=== PATIENT | male | born 1950 | race Caucasian/White ===

== ENCOUNTER 2018-11-21 16:12 | Inpatient (IN) | payer MEDICARE, OTHER ==
[~2018-11-21] VITALS: Ht 185.4 cm; Wt 134.7 kg
[~2018-11-21 16:12] MED LIST: HYDROCODONE-AP1 EAC6 PO; IBUPROFEN 800800 M1 PO; NORTRIPTYLINE H50 M3 PO; PERCOCET PO; ZOFRAN4 MG PO
[2018-11-21 16:20] VITALS: BP 124/96
[2018-11-21] MEDS ORDERED: FLOMAX0.4 MG PO (16:33)
[2018-11-21] MEDS ORDERED: FUROSEMIDE 40 M40 MG PO (16:33)
[2018-11-21] MEDS ORDERED: KLOR-CON M2020 MEQ PO (16:33)
[2018-11-21 17:00] LABS: ABSOLUTE BASOPHILS 0.1 thou/uL (0.0-0.2); ABSOLUTE EOSINOPHILS 0.1 thou/uL (0.0-0.7); ABSOLUTE MONOCYTES 0.6 thou/uL (0.0-1.2); ABSOLUTE NEUTROPHILS 8.3 thou/uL (1.6-8.1); BASOPHILS 0.9 %; EOSINOPHILS 0.9 %; HEMATOCRIT 47.8 % (42.0-52.0); HEMOGLOBIN 15.8 gm/dL (14.0-18.0); LYMPHOCYTES 18.1 %; MCH 29.8 pg (26.0-34.0); MCV 90.2 fL (80.0-100.0); MONOCYTES 5.1 %; MPV 10.3 fl. (7.2-11.1); NUCLEATED RBCS 0 /100WBC; PLATELET COUNT* 229 thou/uL (150-400); WBC 11.1 thou/uL (4.0-11.0)
[2018-11-21 17:05] LABS: APTT 26.7 Seconds (25.0-31.3); INR 1.2
[2018-11-21 17:09] LABS: CALCIUM 9.2 mg/dL (8.5-10.1); CREATININE 1.6 mg/dL (0.6-1.3); POTASSIUM 4.2 mmol/L (3.5-5.1)
[2018-11-21 17:16] LABS: ALBUMIN 3.5 g/dL (3.4-5.0); TOTAL BILIRUBIN 1.4 mg/dL (<0.1-1.0); TOTAL PROTEIN 7.2 g/dL (6.4-8.2)
[2018-11-21 19:19] VITALS: BP 122/89
[2018-11-21 19:30] VITALS: BP 128/58
[2018-11-21 20:33] LABS: URINE BILIRUBIN NEGATIVE (Negative); URINE BLOOD TRACE (Negative); URINE CLARITY CLEAR; URINE COLOR YELLOW; URINE GLUCOSE-RANDOM NEGATIVE (Negative); URINE KETONES NEGATIVE (Negative); URINE LEUKOCYTES-REFLEX NEGATIVE (Negative); URINE NITRITE-REFLEX NEGATIVE (Negative); URINE PROTEIN 1+ (Negative); URINE SPECIFIC GRAVITY 1.025 (1.005-1.030)
--- NOTE | 2018-11-21 22:20 | NUR ---
PT ADMITTED TO ROOM 227 AT 1830. PT PRESENTS TO HOSPITAL WITH SWOLLEN LOWER EXTREMITIES AND REDNESS TO ANKLES AND FEET. PT RECIEVED FIRDT DOSE OF IV VANCOMYCIN. DR DUMONT AT BEDSIDE TO ASSESS PT. PRDERS RECIEVED. PT ORIENTED TO ROOM, BED CONTROLS AND CALL LIGHT. PT GIVEN IV LASIX PER ORDERS. PT USING URINAL INDEPENDENTLY. CALL LIGHT IN REACH, PT DEMONSTRATES PROPER USE.
[2018-11-22] VITALS: BP 99/47
--- NOTE | 2018-11-22 03:32 | NUR ---
AT 2200 PT DISLODGED IV IN LEFT AC. 18 GUAGE SALINE LOCK STARTED IN RIGHT UPPER ARM. PT PULLED OUT IV AT 0330. ATTEMPTED TO START IV X4 WITHOUT SUCCESS. NO IV ACCESS AT THIS TIME.
[2018-11-22 03:45] VITALS: BP 120/87
[2018-11-22 05:52] LABS: HEMATOCRIT 45.6 % (42.0-52.0); HEMOGLOBIN 14.9 gm/dL (14.0-18.0); MCH 29.4 pg (26.0-34.0); MCHC 32.6 g/dL (28.0-37.0); MCV 90.2 fL (80.0-100.0); MPV 10.1 fl. (7.2-11.1); RBC 5.05 mil/uL (4.50-6.00); WBC 11.4 thou/uL (4.0-11.0)
[2018-11-22 06:14] LABS: ALBUMIN 3.3 g/dL (3.4-5.0); CREATININE 1.5 mg/dL (0.6-1.3); POTASSIUM 3.6 mmol/L (3.5-5.1); TOTAL BILIRUBIN 1.5 mg/dL (<0.1-1.0); TOTAL PROTEIN 6.7 g/dL (6.4-8.2)
[2018-11-22 08:00] VITALS: BP 114/87
--- NOTE | 2018-11-22 10:03 | EKG ---
[place] [address] ELECTROCARDIOGRAM REPORT Name: KY FRAIRE Room: [facility] ADM IN M.R.#: [id number] Admission: 11/21/18 Attend Phys: Juanita Warner MD Discharge: Date of : 48 Report #: [id number] THIS REPORT FOR: //name// [facility] ED Test Date: 2018-11-21 Test Time: 16:55:15 Pat Name: KY FRAIRE Department: Room: [facility] Gender: M Folder Hand: : 1950 Requested By: Mayur Sabillon Order Number: [id number] MD: Antonio Enriquez Measurements Intervals [place] Rate: 115 P: 81 [place]: 180 QRS: -66 QRSD: 122 T: -14 QT: 346 QTc: 479 Interpretive Statements Sinus tachycardia Probable left atrial enlargement Nonspecific IVCD with LAD Probable anteroseptal infarct, old Borderline T abnormalities, inferior leads Baseline wander in lead(s) I,III,aVL No previous ECG available for comparison Electronically Signed On 11-22-2018 10:03:36 CDT by Antonio Enriquez [email or web address] <ELECTRONICALLY SIGNED> By: Antonio Enriquez MD, FAC 11/22/18 1003 1655 1655 Antonio Enriquez MD, [facility] /EPI
[2018-11-22 11:38] VITALS: BP 110/82
--- NOTE | 2018-11-22 12:53 | NUR ---
WOUND CARE NOTE: ATTEMPTED TO ASSESS PATIENT, BUT WORKING WITH THERAPIES. WILL ATTEMPT TO ASSESS AT A LATER TIME.
--- NOTE | 2018-11-22 13:13 | NUR ---
cm completed initial assessment. pt a&ox4. pt lives at home w/spouse. spouse works full times, so he is alone most of the day. pt is interested in HH, need be, pt has no hx w/HH nor any preferences. cm sent initial referral to [facility] for review. pt has roller walker and several canes positioned around the house. pt has 2 daughters that are supportive, "they come and go." pt is independent w/cares, some cooking, limited driving when needed. [facility] on home care services, pt states he is not interested in that at this time. referral faxed to [facility] [phone]. cm to f/u with pt at d/c.
--- NOTE | 2018-11-22 13:48 | 2DMMODE ---
[place] [address] 2 D/M-MODE ECHOCARDIOGRAM Name: KY FRAIRE Room: [facility] ADM IN [facility]#: [id number] Admission: 11/21/18 Attend Phys: Juanita Warner, Discharge: Date of : 48 Date of Service: 11/22/18 1348 Report #: [id number] THIS REPORT FOR: //name// APPROVED REPORT Study performed: 11/22/2018 09:58:31 EXAM: Comprehensive 2D, Doppler, and color-flow Echocardiogram Patient Location: In-Patient Room #: [facility] Status: routine BSA: 2.42 HR: 106 bpm BP: 114/87 mmHg Rhythm: NSR Other Information Study Quality: Good Indications elevated bmp, edema 2D Dimensions IVSd: 11.44 (7-11mm) LVOT Diam: 24.27 (18-24mm) LVDd: 69.03 mm PWd: 11.18 (7-11mm) Ascending Ao: 35.42 (22-36mm) LVDs: 64.73 (25-40mm) Aortic Root: 36.59 mm Volumes Left Atrial Volume (Systole) LA ESV Index: 52.70 mL/m2 Aortic Valve AoV Peak Fred.: 0.63 m/s AO Peak Gr.: 1.58 mmHg LVOT Max P.35 mmHg AO Mean Gr.: 1.03 mmHg LVOT Mean P.72 mmHg LVOT Max V: 0.58 m/s AO V2 VTI: 7.91 cm LVOT Mean V: 0.39 m/s JULISA (VTI): 4.24 cm2 LVOT V1 VTI: 7.25 cm TDI Lateral E' Fred.: 0.12 m/[place] [address] 2 D/M-MODE ECHOCARDIOGRAM Name: KY FRAIRE Room: [address] IN [facility].#: [id number] Admission: 11/21/18 Attend Phys: Juanita Warner, Discharge: Date of : 48 Date of Service: 11/22/18 1348 Report #: [id number] PV Peak Fred.: 0.62 m/s PV Peak Gr.: 1.55 mmHg Tricuspid Valve RAP Estimate: 5.00 mmHg TR Peak Gr.: 28.89 mmHg RVSP: 33.00 mmHg PA Pressure: 33.00 mmHg Left Ventricle Left ventricle is mildly dilated. There is severe global hypokinesis of the left ventricle. There is normal left ventricular wall thickness. Left ventricular systolic function is severely decreased. LVEF is 15-20%. Right Ventricle Right ventricle is dilated. The right ventricular systolic function is normal. Atria Left atrium is severely dilated. Right atrium is dilated. Aortic Valve The aortic valve is normal in structure. Trace aortic regurgitation. There is no aortic valvular stenosis. Mitral Valve The mitral valve is normal in structure. Trace mitral regurgitation. No evidence of mitral valve stenosis. Tricuspid Valve The tricuspid valve is normal in structure. Mild tricuspid regurgitation. estimated pa pressure 35 mm Hg Pulmonic Valve The pulmonary valve is normal in structure. Trace pulmonic regurgitation. Great Vessels The aortic root is normal in size. IVC is normal in size and collapses >50% with inspiration. Pericardium There is no pericardial effusion. <Conclusion> LVEF is 15-20%. Left [place] [address] 2 D/M-MODE ECHOCARDIOGRAM Name: KY FRAIRE Room: [address] IN .R.#: [id number] Admission: 11/21/18 Attend Phys: Juanita Warner, Discharge: Date of : 48 Date of Service: 11/22/18 1348 Report #: [id number] Trace mitral regurgitation. Mild tricuspid regurgitation. estimated pa pressure 35 mm Hg <ELECTRONICALLY SIGNED> By: Antonio Enriquez MD, [facility] 11/22/18 1348 1348 1348 Antonio Enriquez MD, FACC /INF
--- NOTE | 2018-11-22 14:55 | NUR ---
RIGHT BASILIC VESSEL ACCESSED FOR SINGLE LUMEN PICC. LINE PRE-TRIMMED TO 45 CM AND ADVANCED TO THE ZERO AUBREY WITH NO RESISTANCE MET. UPPER ARM CIRCUMFERENCE ABOVE INSERTION SITE= 14". SHERLOCK MAGNET AND 3CG CONFIRMATION OF TIP TERMINATION AT THE CAVOATRIAL JUNCTION APPRECIATED. STYLET REMOVED, INSERTION SITE DRESSED, REPORT GIVEN TO JOHNNY HAN.
--- NOTE | 2018-11-22 16:39 | NUR ---
WOUND CARE NOTE: CONSULT RECEIVED FOR le WOUNDS. PATIENT PRESENTS WITH MULTIPLE LOWER EXTREMITIY WOUNDS L>R. PATIENT IS CONFUSED ON WHEN THEY STARTED. PATIENT'S STATES THEY HAVE BEEN FIGHTING WITH THEM FOR APPROXIMATELY 2 MONTHS. RIGHT LEG: LATERAL LESIONS NOTED, THESE ARE DRY, NO DRAINAGE NOTED. ALSO A DRY, BROWN LESION TO THE 5TH LATERAL TOE. APPLIED LOTION TO INTACT SKIN. APPLIED OPTIFOAM AG TO PROTECT AREA AND PROVIDE ANTIMICROBIAL COVERAGE IF THEY DO OPEN. SECURED WITH KERLIX AND BERNY. 1-2+ EDEMA NOTED PEDAL AND ANKLE. LEFT LEG: MULTIPLE LESIONS, RUPTURED BULLA AND AN INTACT BULLA NOTED. THIS LEG IS MORE INFLAMMED THAN THE RIGHT AND MORE EDEMATOUS. THE OPEN LESIONS ARE DRAINING SEROUS DRAINAGE. THE INTACT BULLA IS FILLED WITH SEROUS DRAINAGE. APPLIED LOTION TO INTACT SKIN. APPLIED OPTIFOAM AG TO LESIONS/BULLA AND SECURED WITH KERLIX AND BERNY. BILATERAL FEET WITH RED/PURPLE DISCOLORATION TO THE FOREFOOT/TOES. PATIENT DOES HAVE VERICOSE VEINS TOO. THICKENED TOENAILS. 2+ PEDAL PULSES. PATIENT ALSO HAS DENUDED SKIN TO BILATERAL GROIN SITES. STATES THAT IT DID SMELL. NO ODOR NOTED AT THIS TIME. EDUCATED PATIENT AND ON FINDINGS AND DRESSING SELECTIONS, COMMUNICATED UNDERSTANDING. RECOMMEND INTERDRY AG TO GROIN SITES AFTER CLEANSING WITH SOAP AND WATER DAILY DRESSING CHANGES TO BILATERAL LEGS-SEE ORDERS ELEVATE LEGS ENCOURAGE GOOD NUTRTION/HYDRATION VASCULAR CONSULT-FAMILY TALKED THIS WAS IN THE WORKS
[2018-11-22 18:28] VITALS: BP 108/89
[2018-11-22 20:00] VITALS: BP 118/85
--- NOTE | 2018-11-22 20:31 | NUR ---
PT A&O X4. VSS. PICC, SINGLE LUMEN INSERTED TODAY BY PRESCRIPTION EYEGLASS MAKER. TOLERATING DIET. GOOD URINE OUTPUT. UP WITH KABPR-IM-HLFLTC, USES HIS WALKER.
[2018-11-23] VITALS: BP 96/63
[2018-11-23 04:00] VITALS: BP 107/57
[2018-11-23 04:49] LABS: HEMATOCRIT 45.4 % (42.0-52.0); HEMOGLOBIN 14.7 gm/dL (14.0-18.0); MCH 29.2 pg (26.0-34.0); MCHC 32.4 g/dL (28.0-37.0); MCV 90.2 fL (80.0-100.0); RBC 5.04 mil/uL (4.50-6.00); RDW-CV 14.8 % (10.5-14.5); WBC 9.8 thou/uL (4.0-11.0)
[2018-11-23 05:04] LABS: ALBUMIN 3.2 g/dL (3.4-5.0); CREATININE 1.6 mg/dL (0.6-1.3); MAGNESIUM 2.1 mg/dL (1.8-2.4); POTASSIUM 3.8 mmol/L (3.5-5.1); TOTAL BILIRUBIN 1.2 mg/dL (<0.1-1.0); TOTAL PROTEIN 6.5 g/dL (6.4-8.2)
[2018-11-23 08:00] VITALS: BP 119/73
[2018-11-23 12:08] VITALS: BP 120/81
--- NOTE | 2018-11-23 13:59 | NUR ---
ASSUMED PT CARE REPORT RECEIVED FROM NURSE.PT IS AOX1 TO SELF DENIES WHERE HE IS AT. PT STATES HE IS NOW IN [place]. THEN PT ASKED TO BE GIVEN A SHOWER. REQUEST WAS TAKEN CARE OFF BY HARVESTING SUPERVISOR STAFFS. LEGS WAS WRAPPED WITH OPTIFOAM, BERNY, AND KERLIX ORDERED. AFTER SHOWER PT RECEIVED HIS MORNIGN MEDICINE ORAALY. IV ABX HANGED. PT WAS THEN SEEN BY CEMENT BLOCK MAKER REFUELER. LASIX WAS ORDERED AND A SKINNER CATHETER INSERTION TO MONITOR OUTPUT. THIS NURSE WENT IN ROOM TO ADMINISTER MEDICINE. PT REFUSED MEDICATION ADMINISTRATION SAYING THAT HE WANTS TO SEE HIS OWN DOCTOR, HE WANTS TO GET OUT OF HERE. PT WAS MADE AWARE OF HIS BEHAVIOR. PT STATES THAT PT HAS BEEN HAVING TROUBLE WITH MEMORY AND COGNITIVE THINKING THE PAST 3 DAYS BEFORE ADMISSION TO HOSPITAL. PT REFUSED TO WEAR HIS KAI WHAKARURUHAU WHICH STAYED OFF FOR A COUPLE HOURS. SITTER 1:1 ORDERED. THINKS PT IS HAVIBNG EARLY SIGN OF DEMENTIA. SITTER CURRENTLY IN ROOM. WILL CONTINUE TO MONITOR PT
--- NOTE | 2018-11-23 14:25 | NUR ---
PER NURSE, PT CONFUSED AND RESTLESS TODAY, REFUSING CARES. MET WITH . SHE STATED THAT PT HAS BEEN FINE AT HOME UP UNTIL ABOUT A WEEK AGO, STARTING HAVING FALLS. PRIOR TO THAT, HE HAD BEEN DRIVING HIMSELF TO DR NIELSEN AND CARING FOR SELF WHILE AT WORK. DISCUSSED POSSIBLE SNF AND GAVE LIST TO , PT HAS NEVER BEEN TO SNF. DID DO OUTPT THERAPY IN PAST. THEY LIVE IN [place] HOME WITH NO STEPS AND WALK IN TUB. STATES SHE IS DPOA, WILL BRING IN COPY. PT HAS HX OF BACK SURGERY 5Y/A AND MULTIPLE SCLEROSIS. CM TO FOLLOW
--- NOTE | 2018-11-23 14:26 | NUR ---
PT PLACED BACK ON MANAGER DATA WAREHOUSE.
[2018-11-23 16:15] VITALS: BP 102/64
--- NOTE | 2018-11-23 17:04 | NUR ---
PT BLADDER SCANNED. RESIDUAL OF 140 CC. NO SKNINER NEEDED. PT IS ALSO INCONTINENT. SO I&o MONITORING IS NOT ACCURATE.
[2018-11-23 19:45] VITALS: BP 88/63
[2018-11-24] VITALS (37 sets, daily range): BP systolic 7–153; BP diastolic 36–98
[2018-11-24 02:06] LABS: HEPATITIS B SURFACE AG Negative (Negative)
[2018-11-24 02:40] LABS: PCO2 26.2 mmHg (35.0-45.0); pH 7.316 (7.340-7.450)
[2018-11-24 03:04] LABS: ABSOLUTE BASOPHILS 0.1 thou/uL (0.0-0.2); ABSOLUTE LYMPHOCYTES 1.2 thou/uL (0.8-5.3); ABSOLUTE MONOCYTES 1.1 thou/uL (0.0-1.2); ABSOLUTE NEUTROPHILS 10.2 thou/uL (1.6-8.1); BASOPHILS 0.4 %; EOSINOPHILS 0.1 %; HEMATOCRIT 48.9 % (42.0-52.0); LYMPHOCYTES 9.7 %; MCH 29.8 pg (26.0-34.0); MCHC 32.6 g/dL (28.0-37.0); MCV 91.4 fL (80.0-100.0); MONOCYTES 8.9 %; MPV 9.8 fl. (7.2-11.1); NUCLEATED RBCS 0 /100WBC; PLATELET COUNT* 197 thou/uL (150-400); POLYS 80.9 %; RBC 5.35 mil/uL (4.50-6.00); RDW-CV 15.3 % (10.5-14.5); WBC 12.7 thou/uL (4.0-11.0)
[2018-11-24 03:28] LABS: ALBUMIN 3.3 g/dL (3.4-5.0); CALCIUM 8.8 mg/dL (8.5-10.1); CREATININE 2.4 mg/dL (0.6-1.3); MAGNESIUM 2.3 mg/dL (1.8-2.4); TOTAL BILIRUBIN 1.8 mg/dL (<0.1-1.0); TOTAL PROTEIN 6.5 g/dL (6.4-8.2)
[2018-11-24 03:36] LABS: POTASSIUM 4.9 mmol/L (3.5-5.1)
--- NOTE | 2018-11-24 07:52 | NUR ---
PT AWAKE MOST OF SHIFT. ASSESSMENT DOCUMENTED. PT REFUSED ALL PO MEDS. PICC PATENT. PT VERY COMBATIVE THIS SHIFT. SKINNER PLACED FOR RETENTION. RAPID CALLED BECAUSE PTS BREATHING WORSENED AND HIS ABDOMEN, BACK, EARS AND EXREMETIES WERE PURPLE AND PULSE OX WAS READING IN THE 70'S. SEE RAPID SHEET. ORDERS RECIEVED FOR ANXIETY. BIPAP PLACED ON PATIENT DURQUE RAPID. SITTER AT BEDSIDE, PT REMAINED COMBATIVE AND IS PULLING AT HIS MASK, SKINNER, AND PICC. PT TRYING TO HIT STAFF. MEDICATIONS GIVEN FOR ANXIETY PER E-MAR. REPORT GIVEN TO ONCOMING NURSE.
[2018-11-24 09:00] LABS: BE -9.1 mmol/L (-2 to +3); pH 7.384 (7.340-7.450)
[2018-11-24 09:02] LABS: PO2 213.8 mmHg (75.0-100.0)
[2018-11-24 13:11] LABS: CREATININE 3.2 mg/dL (0.6-1.3); POTASSIUM 4.7 mmol/L (3.5-5.1)
[2018-11-24 18:11] LABS: URINE BILIRUBIN NEGATIVE (Negative); URINE BLOOD 3+ (Negative); URINE CLARITY CLOUDY; URINE COLOR YELLOW; URINE GLUCOSE-RANDOM TRACE (Negative); URINE KETONES NEGATIVE (Negative); URINE NITRITE-REFLEX NEGATIVE (Negative); URINE PROTEIN 3+ (Negative); URINE SPECIFIC GRAVITY 1.025 (1.005-1.030)
[2018-11-24 18:13] LABS: URINE LEUKOCYTES-REFLEX 2+ (Negative)
[2018-11-24 18:22] LABS: SQUAMOUS 0-3 Few /LPF (0-3)
[2018-11-24 18:24] LABS: BACTERIA-REFLEX >30 Many /HPF (None Seen); CRYSTALS None Seen /LPF (None Seen); FINE GRANULAR CASTS 0-3 Few /LPF (None Seen); HYALINE CASTS 0-3 Few /LPF (None Seen); MUCUS None Seen strn/LPF (None Seen)
--- NOTE | 2018-11-24 19:32 | NUR ---
PT RECEIVED FROM [facility] AT 0840, FLUID BOLUS ADMINISTERED. LEVOPHED AND DOBUTAMINE SUPPORT ADDED. CT HEAD DONE. LEVOPHED OFF AT 1700, MAP >60. DOBUTAMINE CONTD. PT NOT TOLERATING BIPAP, TAKING OUT THE MASK. 02 SATS >95% IN NC 2 L/MIN. WOUND ON B/L LEGS DRESSED. PT AWAKE AND CONFUSED BUT NOT AGITATED, REORIENTATION PROVIDED.
[2018-11-25] VITALS (21 sets, daily range): BP systolic 95–160; BP diastolic 59–128
[2018-11-25 03:57] LABS: HEMATOCRIT 42.8 % (42.0-52.0); MCH 29.7 pg (26.0-34.0); MCHC 32.7 g/dL (28.0-37.0); MCV 90.9 fL (80.0-100.0); RBC 4.71 mil/uL (4.50-6.00); RDW-CV 15.3 % (10.5-14.5); WBC 14.3 thou/uL (4.0-11.0)
[2018-11-25 04:19] LABS: ALBUMIN 2.7 g/dL (3.4-5.0); CALCIUM 7.6 mg/dL (8.5-10.1); CREATININE 3.8 mg/dL (0.6-1.3); MAGNESIUM 2.1 mg/dL (1.8-2.4); POTASSIUM 4.1 mmol/L (3.5-5.1); TOTAL PROTEIN 5.6 g/dL (6.4-8.2)
[2018-11-25 06:46] LABS: BE -6.1 mmol/L (-2 to +3); PO2 92.3 mmHg (75.0-100.0)
[2018-11-25 10:03] LABS: APTT 33.4 Seconds (25.0-31.3); PROTIME 19.6 Seconds (9.20-11.50)
--- NOTE | 2018-11-25 18:17 | NUR ---
PATIENT SOMEWHAT PROGRESSING WELL TOWARDS GOALS. KIDNEY FUNCTION CONTINUING TO RISE WITH POOR URINE OUTPUT THIS SHIFT. REMAINS ON DOBUTAMINE GTT PER CARDIOLOGY. FLUID RESTRICTION STARTED TODAY, 1500ML. IV FLUIDS DECREASED, PATIENT DID GET UP TO COMMODE TODAY BUT DID NOT TOLERATE WELL. VERY ANXIOUS TO ALYSSA MEZA, EDUCATED THAT HIS PERFUSION IS POOR AND HE HAS LOWER EXTREMITY WOUNDS THAT NEED TO HEAL, GETS SHORT OF BREATH WITH EXERTION. ON ROOM AIR THROUGHOUT THIS SHIFT AND SATS REMAIN ABOVE 92%. VITALS REMAIN STABLE. NO PAIN OR NAUSEA. FALL PRECAUTIONS IN PLACE, WOUNDS CLEANED AND REDRESSED, PICTURES TAKEN. FAMILY IN AND OUT VISITING TODAY. BED IN LOWEST POSTION, CALL LIGHT IN REACH, FALL PRECAUTIONS IN PLACE.
[2018-11-26] VITALS (19 sets, daily range): BP systolic 88–136; BP diastolic 54–90
--- NOTE | 2018-11-26 03:32 | NUR ---
RECEIVED REPORT AND ASSUMED CARE AT 1900. PT DENIES COMPLAINTS OF PAIN. VSS. ICU MONITORING IN PLACE. ASSESSMENT COMPLETED CHARTED. PT BEDREST ON RA. BED LOCKED IN LOWEST POSITION, CALL LIGHT WITHIN REACH, BED ALARM ON. BED HAND SOLE SEWER ADDED TO BED FOR COMFORT. MEDICATION ADMIN PER EMAR.
[2018-11-26 03:57] LABS: HEMOGLOBIN 13.8 gm/dL (14.0-18.0); MCH 29.6 pg (26.0-34.0); MCV 89.7 fL (80.0-100.0); MPV 9.8 fl. (7.2-11.1); RBC 4.68 mil/uL (4.50-6.00); RDW-CV 14.7 % (10.5-14.5); WBC 11.2 thou/uL (4.0-11.0)
[2018-11-26 04:37] LABS: ALBUMIN 2.7 g/dL (3.4-5.0); CALCIUM 7.7 mg/dL (8.5-10.1); CREATININE 4.6 mg/dL (0.6-1.3); MAGNESIUM 2.1 mg/dL (1.8-2.4); POTASSIUM 3.9 mmol/L (3.5-5.1); TOTAL BILIRUBIN 2.5 mg/dL (<0.1-1.0); TOTAL PROTEIN 5.7 g/dL (6.4-8.2)
--- NOTE | 2018-11-26 10:15 | NUR ---
PT.WAS TRANSFERRED TO ICU ON 11/24 DUE TO DYNAMIC INSTABILITY, LESS RESPONSIVE. REMAINS IN ICU TODAY. LIVER ENZYMES ELEVATED. PROFILING MACHINE SET UP OPERATOR. ELEVATED. REMAINS ON DOBUTAMINE. FAMILY AT BEDSIDE. THEY HAD NO QUESTIONS FOR CM. WILL CONT.TO FOLLOW.
--- NOTE | 2018-11-26 17:50 | NUR ---
PT RESTING IN BED THROUGHOUT SHIFT. PT REPOSITIONED FREQUENTLY. AT BS AND UPDATED ON PLAN OF CARE. SKINNER CATH DRAINING DK YELLOW URINE. PT TOLERATING PO. POOR APPETITE. CARDIOLOGY REQUEST TO TRANSFER PT TO [facility] IN AM FOR FURTHER MANAGEMENT OF CHF AND MULTI SYSYEM ORGAN DYSFUNCTION
[2018-11-27] VITALS (15 sets, daily range): BP systolic 110–130; BP diastolic 82–94
--- NOTE | 2018-11-27 02:32 | NUR ---
RECEIVED REPORT AND ASSUMED CARE AT 1900. VSS. PT DENIES COMPLAINTS OF PAIN. ASSESSMENT COMPLETED CHARTED. BED LOCKED IN LOWEST POSITION. BED ALARM ON.
[2018-11-27 04:01] LABS: HEMATOCRIT 43.3 % (42.0-52.0); HEMOGLOBIN 14.2 gm/dL (14.0-18.0); MCH 29.3 pg (26.0-34.0); MCHC 32.9 g/dL (28.0-37.0); MPV 10.1 fl. (7.2-11.1); RBC 4.87 mil/uL (4.50-6.00); RDW-CV 14.7 % (10.5-14.5); WBC 9.7 thou/uL (4.0-11.0)
[2018-11-27 04:08] LABS: APTT 31.7 Seconds (25.0-31.3); INR 1.6; PROTIME 16.6 Seconds (9.20-11.50)
[2018-11-27 04:15] LABS: ALBUMIN 2.5 g/dL (3.4-5.0); CALCIUM 7.3 mg/dL (8.5-10.1); CREATININE 5.4 mg/dL (0.6-1.3); MAGNESIUM 2.3 mg/dL (1.8-2.4); POTASSIUM 4.1 mmol/L (3.5-5.1); TOTAL BILIRUBIN 3.6 mg/dL (<0.1-1.0); TOTAL PROTEIN 5.7 g/dL (6.4-8.2)
--- NOTE | 2018-11-27 07:33 | CON ---
[address] [address] CONSULTATION Name: KY FRAIRE Room: [address] IN M.R.#: [id number] Admission: 11/21/18 Attend Phys: Juanita Warner MD Discharge: Date of : 48 Report #: [id number] THIS REPORT FOR: //name// CC: Chadd aWrner DATE OF SERVICE: 11/21/2018 INFECTIOUS DISEASE CONSULTATION HISTORY OF PRESENT ILLNESS: This is a 68-year-old with a history of possible multiple sclerosis who does utilize a walker, has had frequent falls, noted for extended period of time to have intermittent swelling of his lower extremities. Over the course of last few weeks, it has worsened, associated with increasing redness and pain bilaterally. He was evaluated as an outpatient. Family confirmed not to have any lower extremity DVTs and no "circulatory problems," and had developed some bullous lesions as well, was felt to perhaps have a staphylococcal infection, received 2 courses of trimethoprim sulfamethoxazole later without significant benefit. He has not had systemic illness. Denies any fevers or chills. No pulmonary or gastrointestinal related complaints. He presented to the Emergency Room and was subsequently admitted, was felt to have a component of skin and soft tissue infection with cellulitis associated with lower extremity superficial ulcers. Urinalysis was otherwise unremarkable. Chest x-ray showed cardiomegaly without failure, mild basilar atelectasis, empirically started on antimicrobials with vancomycin. ALLERGIES: None known. CURRENT MEDICINES: Include tamsulosin, vancomycin, cyclobenzaprine, famotidine, enoxaparin, nortriptyline, furosemide, lorazepam, ondansetron. PAST MEDICAL HISTORY: As noted above, history of multiple sclerosis, hypertension, back surgery, and chronic lower extremity pain I suspect due to neuropathy. SOCIAL HISTORY: Nonsmoker, no ethanol, no illicit drug use. FAMILY HISTORY: Noncontributory. REVIEW OF SYSTEMS: Otherwise, unremarkable 10-point review of systems except noted above. PHYSICAL EXAMINATION: GENERAL: Appears somewhat chronically ill, undernourished. He is cooperative, alert, pleasant. VITAL SIGNS: Temperature 97.7, pulse 110, respirations 18, [place] [address] CONSULTATION Name: KY FRAIRE Room: [address]#: [id number] Admission: 11/21/18 Attend Phys: Juanita Warner MD Discharge: Date of : 48 Report #: [id number] 110/82. SKIN: Warm, dry, no rashes. HEENT: Normocephalic. Extraocular muscles intact. NECK: Supple. LUNGS: Diminished breath sounds. HEART: Regular. I do not appreciate a murmur. ABDOMEN: Obese and nontender. EXTREMITIES: Bilateral lower extremities have dermopathy due to vasculopathy, I suspect component of venous stasis insufficiency dermatitis as well, does have multiple superficial ulcers. There are some non-denuded bullous lesions that are quite superficial. RECTAL: Deferred. LABORATORY DATA: Blood cultures sterile thus far. Electrolytes: Sodium 138, potassium 3.6, chloride 100, bicarbonate is 26, anion gap of 12, BUN and creatinine 26 and 1.5. AST of 78, ALT of 128. CBC: White count of 11.4, H and H 14.9 and 45.6, platelets of 231. Lactic acid initially 2.2, peaked at 2.8, now most recently 1.9. Urinalysis unremarkable. ASSESSMENT AND PLAN: Bilateral lower extremity inflammatory eruption, likely multifactorial. Suspect component of venous stasis insufficiency dermatitis, may well have a skin soft tissue infection, cellulitis as well. I think it is reasonable to continue the vancomycin for now, go ahead and do arterial Dopplers. It is not clear whether they were done or a simply venous Doppler. Certainly, appearance would suggest possible arterial occlusive disease. If that indeed is not the case ____ the patient can tolerate, consider adding compression, certainly elevation as well. We will monitor expectantly. Discussed with the patient's spouse. <ELECTRONICALLY SIGNED> By: Kiko Cho MD 11/27/18 0733 1142 1244Jorodney Cho MD /nt
--- NOTE | 2018-11-27 10:37 | NUR ---
ICU ROUNDS: PT.RECEIVED TEMP DIALYSIS CATHETER THIS AM. HAVING FIRST DIALYSIS AT THIS TIME. NO VISITORS AT THIS TIME.
--- NOTE | 2018-11-27 12:00 | NUR ---
TANIRN RECEIVED CALL FROM [facility] TRANSFER TEAM REGARDING PT. HAD SPOKEN WITH SOCIAL WORK ASSOCIATE ,, AT [facility]. TRANSFER TEAM WAS REQUESTING DEMOGRAPHICS AND INSURANCE INFO. CM FAXED FACE SHEET TO TRANSFER [phone] PER REQUEST. AMBULANCE MEDICAL NECESSITY FORM AND EMTALA FORM STARTED AND FAXED TO ICU FOR CHART. [facility] TRANSFER TEAM TO CALL BED ASSIGNMENT AND ACCEPTING ,WHEN IN PLACE, TO ICU.
--- NOTE | 2018-11-27 16:03 | NUR ---
PATIENT AWAITING TRANSFER TO [facility]. FAMILY AT BEDSIDE ANSWERS SIMPLE QUESTIONS DENIES PAIN OR SOA.
--- NOTE | 2018-11-27 20:21 | NUR ---
[facility] CALLED WITH A BED FOR PT. REPORT GIVEN TO EMELY CARTAGENA FOR CONTINUATION OF CARE. INFORMED OF TRANSFER. PT GOING TO ROOM H515. REMAINS ON DOBUTAMIN GTT. VITALS REMAIN STABLE.
--- NOTE | 2018-11-27 20:56 | NUR ---
PT TO [facility] VIA EMS AT THIS TIME, DOBUTAMIN REMAINS RUNNING. ALL BELONGINGS, INCLUDING WALKER, SENT WITH PATIENTLudmila CHERRY AT [facility] INFORMED OF TRANSFER. VITALS REMAIN STABLE. PT ALERT AND ENGAGING WITH STAFF HE LEFT THE HOSPITAL.
--- NOTE | 2018-11-28 12:48 | CON ---
[address] [address] CONSULTATION Name: KY FRAIRE Room: [address] IN M.R.#: [id number] Admission: 11/21/18 Attend Phys: Juanita Warner MD Discharge: 11/27/18 Date of : 48 Report #: [id number] THIS REPORT FOR: //name// CC: Chadd Warner MD DATE OF SERVICE: 11/24/2018 PULMONARY CONSULTATION REASON FOR CONSULTATION: 1. Cardiogenic shock. 2. Hypoxic respiratory failure. 3. Altered mental status. PHYSICIAN REQUESTING CONSULTATION: Juanita Warner MD Please note that the patient is altered and most of the history is taken from discussion with the medical personnel and reviewing his medical chart. HISTORY OF PRESENT ILLNESS: The patient is a 68-year-old thin gentleman with past medical history that is significant for multiple sclerosis, was utilizing walker and had frequent falls. He has history of hypertension and back surgery. He has been on gabapentin for neuropathy. The patient presented to the Emergency Department. He had multiple falls and he was found to have bilateral lower limb swelling and cellulitis. The patient was treated as an outpatient with Bactrim. He came to the hospital where he was admitted and was started on IV antibiotics. During his hospitalization, the patient was found to be more altered. He subsequently last night dropped his blood pressure and was working hard to breathe. His mental status also deteriorated for which the patient was transferred to the ICU. The patient is currently somnolent on BiPAP. He dropped his blood pressure in the 90s/40s. He was found to have lactic acidosis as well. According to the sister, the patient had downfall course over the last few [facility] [address] [place] [address] CONSULTATION Name: KY FRAIRE Room: [address]#: [id number] Admission: 11/21/18 Attend Phys: Juanita Warner MD Discharge: 11/27/18 Date of : 48 Report #: [id number] weeks. PAST MEDICAL HISTORY: 1. Positive for multiple sclerosis. 2. Hypertension. 3. Back surgery. 4. Neuropathy. 5. History of chronic kidney disease. SOCIAL HISTORY: The patient is a nonsmoker. No alcohol or illicit drug use according to the chart. FAMILY HISTORY: Not obtainable. REVIEW OF SYSTEMS: Unobtainable since the patient is comatose. PHYSICAL EXAMINATION: VITAL SIGNS: The patient has following vital signs, temperature 36.9, heart rate 105, respiratory rate of 24, blood pressure of 89/63, saturation was 93% on BiPAP. GENERAL: Examination showed a middle-aged gentleman who is comatose, was on BiPAP. HEENT: Head is atraumatic. Pupils are sluggishly reactive. NECK: No JVD. CARDIOVASCULAR: Regular rate and rhythm. No murmur. CHEST: Showed tachypnea with no crackles or wheezes. ABDOMEN: Soft, obese, nontender. CENTRAL NERVOUS SYSTEM: As the patient is comatose, Moving 4 limbs, but not following commands. Lower limb examination showed bilateral cellulitis with a dressing and erythema. EXTREMITIES: There is 1+ edema of the lower limbs. LABORATORY DATA: As follows. Lactic acid was 59. ABG showed pH 7.38, pCO2 of 23. pO2 of 213 on BiPAP at 45% FiO2 and 14/6 cm H2O. His CBC showed WBC count of 12.7, hemoglobin of 16 and platelets of 197. His last creatinine was 2.4. His sodium 136, potassium 4.9, chloride 99 and anion gap of 18. Chest x-ray today showed increased bibasilar density suggestive of atelectasis rather than pneumonitis. ASSESSMENT AND PLAN: 1. Acute encephalopathy. 3. Acute hypoxic respiratory failure secondary to above. 4. Cardiogenic versus septic shock. 5. Bilateral lower limb cellulitis. 6. Lactic acidosis. 7. Pbsci-nb-hnskzsk [place] [address] CONSULTATION Name: KY FRAIRE Room: [address]#: [id number] Admission: 11/21/18 Attend Phys: Juanita Warner MD Discharge: 11/27/18 Date of : 48 Report #: [id number] 8. History of MS. 9. Probable dementia. 10. Elevated troponin. 11. Newly diagnosed systolic heart failure. Currently, the patient's creatinine is in a critical condition. We will get CT scan of the head stat to rule out intracranial process. He was started on Precedex at low dose. I had a long discussion with the patient's sister who believes that the patient is DNR, but would verify more when the patient's comes to the hospital, and we will titrate oxygen to keep saturation above 90%. We will continue BiPAP as tolerated. We will intubate if the patient's family would like to go for full aggressive measures. We will titrate oxygen to keep saturation above 90%. PICC line is ordered. Empiric antibiotic coverage with vancomycin and Zosyn. I had discussed with the staff checking clerk and we will give the patient an IV fluid bolus and subsequently will be on D5 with bicarbonate drip. Strict input and output chart. Avoid nephrotoxic medications. I agree with Cardiology consultation. I will start the patient on Levophed while awaiting Cardiology recommendations. PROGNOSIS: The patient appears to be in multiorgan failure. Prognosis is guarded. Discussed with the patient's RN, patient's family members at the bedside and primary hospitalist and checking clerk. Critical care time 33 [place] [address] CONSULTATION Name: KY FRAIRE Room: [address] IN M.R.#: [id number] Admission: 11/21/18 Attend Phys: Juanita Warner MD Discharge: 11/27/18 Date of : 48 Report #: [id number] Thank you for giving us the opportunity to participate in the management of this patient. <ELECTRONICALLY SIGNED> By: Valerie Wu MD 11/28/18 1248 1014 [id number] Wu MD /nt
--- NOTE | 2018-12-05 09:27 | CON ---
[address] [address] CONSULTATION Name: [place] FRAIRE Room: [address] IN .R.#: [id number] Admission: 11/21/18 Attend Phys: Juanita Warner MD Discharge: 11/27/18 Date of : 48 Report #: [id number] THIS REPORT FOR: //name// CC: Chadd Warner DATE OF SERVICE: 11/24/2018 REQUESTING PHYSICIAN: Juanita Warner MD REASON FOR CONSULTATION: Acute kidney injury. HISTORY OF PRESENT ILLNESS: The patient is a 68-year-old gentleman, medical history is significant for recent diagnosis of multiple sclerosis, possible dementia, history of morbid obesity, COPD, tobaccoism, presents to Emergency Room with some worsening of bilateral leg pain and edema. The patient apparently developed some blisters and edema over the last several weeks. Was given 2 rounds of p.o. Bactrim, but did not get any better. PAST MEDICAL HISTORY: As I mentioned earlier. When he came to the hospital, he was started on antibiotics, but last night, he became hypotensive, confused and was transferred to Intensive Care Unit. He was found to have cardiomyopathy with left ventricular ejection fraction of 15-20%. SOCIAL HISTORY: Positive for tobaccoism and use of alcohol in the past. FAMILY HISTORY: Noncontributory. MEDICATIONS: Prior to admission include ibuprofen and Bactrim, also was on Lasix. Here in the hospital, he was started on IV Zosyn and vancomycin. PHYSICAL EXAMINATION: GENERAL: He is very agitated, confused in Intensive Care Unit. He is obese. VITAL SIGNS: His blood pressure now 89/63, heart rate 99, temperature is 36.9. NECK: Fatty. LUNGS: Decreased air movement. CARDIOVASCULAR: Distant heart tones. ABDOMEN: Obese. EXTREMITIES: Lower extremities with chronic edema. He also has a mottled skin. LABORATORY REPORT: His ABG revealed pH of 7.38, pCO2 of 23, pO2 of 213. His bicarb was 13. His hemoglobin is 16.0, white count 12.7. His serum sodium is 136, potassium 4.9, chloride 99, carbon dioxide 19, BUN 35, creatinine 2.4. His AST was 1605, ALT 1409. His creatinine on admission was 1.6. [place] [address] CONSULTATION Name: [place] FRAIRE Room: [address]#: [id number] Admission: 11/21/18 Attend Phys: Juanita Warner MD Discharge: 11/27/18 Date of : 48 Report #: [id number] I do not know a baseline of his creatinine. ASSESSMENT: 1. Acute kidney injury, likely due to hypotension. He has hypotension due to cardiogenic shock. He has very low ejection fraction, probably also is septic. 2. Morbid obesity. 3. History of tobaccoism. 4. Possible multiple sclerosis or dementia. PLAN: 1. Support the patient. He is receiving liter of saline. I will defer the amount of boluses that he needs to fabrication engineer because the patient has very low ejection fraction. 2. I will put him on the bicarb drip. 3. Continue with antibiotics. 4. Make sure his vancomycin level is checked on a daily basis. Follow his labs very carefully. Discussed with Dr. Warner, discussed with his crane assembler and with the patient's ICU nurse, discussed with family as well. The patient is critically ill. Thirty-five minutes spent on this critical care consultation. <ELECTRONICALLY SIGNED> By: Paco Fofana MD 12/05/18 0927 [id number] Fofana MD /nt
== END 2018-11-27 21:12 | disposition short-term general hospital (02) | DRG 871 ==
LOC: M.ERS 16:12 → M.TBA-ER 17:11 → M.2W 17:11 → M.ICU 11-24 08:36
PROVIDERS: Family Medicine; Internal Medicine; ADMIT Internal Medicine
PROC: 02HV33Z Insertion of Infusion Device into Superior Vena Cava, Percutaneous Approach (ICD-10-PCS; 2018-11-22)
PROC: 5A09357 Assistance with Respiratory Ventilation, Less than 24 Consecutive Hours, Continuous Positive Airway Pressure (ICD-10-PCS; principal; 2018-11-24)
PROC: 5A1D70Z Performance of Urinary Filtration, Intermittent, Less than 6 Hours Per Day (ICD-10-PCS; 2018-11-27)
PROC: 02H633Z Insertion of Infusion Device into Right Atrium, Percutaneous Approach (ICD-10-PCS; 2018-11-27)
PROC: B548ZZA Ultrasonography of Superior Vena Cava, Guidance (ICD-10-PCS; 2018-11-27)
DX: A41.9 Sepsis, unspecified organism (principal); I50.23 Acute on chronic systolic (congestive) heart failure; R57.0 Cardiogenic shock; J96.01 Acute respiratory failure with hypoxia; R65.21 Severe sepsis with septic shock; K72.00 Acute and subacute hepatic failure without coma; I13.0 Hypertensive heart and chronic kidney disease with heart failure and stage 1 through stage 4 chronic kidney disease, or unspecified chronic kidney disease; L03.116 Cellulitis of left lower limb; I42.9 Cardiomyopathy, unspecified; N17.9 Acute kidney failure, unspecified; G93.40 Encephalopathy, unspecified; L03.115 Cellulitis of right lower limb; L97.929 Non-pressure chronic ulcer of unspecified part of left lower leg with unspecified severity; L97.919 Non-pressure chronic ulcer of unspecified part of right lower leg with unspecified severity; G35 Multiple sclerosis; E66.01 Morbid (severe) obesity due to excess calories; Z68.39 Body mass index [BMI] 39.0-39.9, adult; J44.9 Chronic obstructive pulmonary disease, unspecified; G62.9 Polyneuropathy, unspecified; N18.3 Chronic kidney disease, stage 3 (moderate); I87.2 Venous insufficiency (chronic) (peripheral); N40.0 Benign prostatic hyperplasia without lower urinary tract symptoms; F03.90 Unspecified dementia, unspecified severity, without behavioral disturbance, psychotic disturbance, mood disturbance, and anxiety; N30.90 Cystitis, unspecified without hematuria; E87.70 Fluid overload, unspecified; G47.33 Obstructive sleep apnea (adult) (pediatric); Z23 Encounter for immunization